=== PATIENT | male | born 1980 | race Caucasian/White ===

== ENCOUNTER 2018-08-27 23:10 | Emergency (ER) | payer MEDICAID ==
[~2018-08-27] VITALS: Ht 177.8 cm; Wt 91.0 kg
[2018-08-28] MEDS ORDERED: IBUPROFEN 600MG TABLET PO ONE (01:15)
[2018-08-28 03:08] VITALS: BP 122/75
== END 2018-08-28 03:09 | disposition home or self-care (01) ==
LOC: ER 23:10
DX: S60.212A Contusion of left wrist, initial encounter (principal); S60.221A Contusion of right hand, initial encounter; F17.200 Nicotine dependence, unspecified, uncomplicated; F12.10 Cannabis abuse, uncomplicated; Z88.0 Allergy status to penicillin; X58.XXXA Exposure to other specified factors, initial encounter; Y93.89 Activity, other specified; Y92.89 Other specified places as the place of occurrence of the external cause; Y99.8 Other external cause status
CPT/HCPCS: 73110; 73130; 99284